=== PATIENT | male | born 1985 | race African-American/Black ===

== ENCOUNTER 2018-04-07 12:07 | Emergency (ER) | payer OTHER ==
[~2018-04-07] VITALS: Ht 180.3 cm; Wt 86.2 kg
[~2018-04-07 12:07] MED LIST: CLARITIN10 M1 ORAL; GENTAK3.5 GM OP; IBUPROFEN600 MG PO; LOMOTIL TABLET1 EACH ORAL; NKM; ONDANSETRON ODT4 MG ORAL; PENICILLIN V P500 MG PO; PROMETHAZINE-C118 M1 ORAL
[2018-04-07 12:30] VITALS: BP 144/76
--- NOTE | 2018-04-07 12:38 | Emergency Room Report ---
History of Present Illness General Chief Complaint: Abdominal Pain Source: Patient Present Illness HPI 32-year-old male presents to the emergency department complaining of 2 out of 10 in severity intermittent cramping lower abdominal pain with associated diarrhea 3 days. Patient reports he just returned from [place] and had acute onset of his symptoms when he landed. Patient denies fevers or chills he denies blood in the stool or black tarry stools. Patient denies nausea or vomiting. He states he is up-to-date with his vaccinations denies ill contacts with similar symptoms. Patient denies abdominal tenderness. Patient estimates that since landing 3 days ago he's had approximately 20 loose stools that he describes as primarily watery in consistency. Denies fatigue, rashes, swollen tender lymph nodes, headache or dizziness. Allergies: Coded Allergies: No Known Allergies (Unverified , 11/17/13) Patient History Past Medical History: see triage record Past Surgical History: none Pertinent Family History: none Reviewed Nursing Documentation: PMH: Agreed; PSxH: Agreed Nursing Documentation-PMH Past Medical History: No Stated History Review of Systems All Other Systems: negative except mentioned in HPI Physical Exam Vital Signs Date Time Temp Pulse Resp B/P (MAP) Pulse Ox O2 Delivery O2 Flow Rate FiO2 04/07/18 12:15 98.4 86 20 133/80 97 Room Air 98.4 Sp02 EP Interpretation: reviewed, normal General Appearance: no apparent distress, alert, GCS 15, non-toxic Head: normocephalic, atraumatic ENT: hearing grossly normal, normal voice Neck: full range of motion Respiratory: chest non-tender, lungs clear, normal breath sounds, speaking full sentences Cardiovascular #1: regular rate, rhythm, no edema Gastrointestinal: normal bowel sounds - hyperactive BS in all 4 quadrants., non tender, soft, no peritonitis, non-distended, no guarding Rectal: deferred Genitourinary: normal inspection Musculoskeletal: back normal, gait/station normal, normal range of motion, non- tender Neurologic: alert, oriented x3, responsive, motor strength/tone normal, sensory intact, speech normal, grossly normal Psychiatric: judgement/insight normal Skin: normal color, no rash, warm/dry, well hydrated Lymphatic: no adenopathy Medical Decision Making PA Attestation Dr. Holland is my supervising Physician whom patient management has been discussed with. Diagnostic Impression: Primary Impression: Diarrhea Qualified Codes: R19.7 - Diarrhea, unspecified ER Course 32-year-old male presents to the emergency department complaining of 2 out of 10 in severity intermittent cramping lower abdominal pain with associated diarrhea 3 days. Patient reports he just returned from [place] and had acute onset of his symptoms when he landed. Patient denies fevers or chills he denies blood in the stool or black tarry stools. Patient denies nausea or vomiting. He states he is up-to-date with his vaccinations denies ill contacts with similar symptoms. Patient denies abdominal tenderness. Patient estimates that since landing 3 days ago he's had approximately 20 loose stools that he describes as primarily watery in consistency. Denies fatigue, rashes, swollen tender lymph nodes, headache or dizziness. Ddx considered but are not limited to GE, colitis, acute appy, SBO, Cyclical Vomiting secondary to THC Vital signs: pt. is afebrile, H&PE are most consistent with GE most likely traveler's diarrhea, no evidence to suggest acute abdomen on physical exam. pt. non-toxic in appearance and for the most part NAD ORDERS: -None required at this time, the dx is clinical. ED INTERVENTIONS: -1000 NS IV hydration, -Bentyl PO - Mylanta PO d/w pt. conservative treatment, and to follow up with a primary care provider. pt given a list of primary care clinics for follow up. d/w pt. to return to the ED with worsening or new symptoms. DISCHARGE: At this time pt. is stable for d/c to home. Will provide printed patient care instructions, and any necessary prescriptions. Care plan and follow up instructions have been discussed with the patient prior to discharge. Last Vital Signs Date Time Temp Pulse Resp B/P (MAP) Pulse Ox O2 Delivery O2 Flow Rate FiO2 04/07/18 12:15 98.4 86 20 133/80 97 Room Air 98.4 Disposition: HOME, SELF-CARE Condition: Stable Scripts Simethicone* (SIMETHICONE*) 80 Mg Tab.chew 80 MG ORAL Q8H, #20 TAB 0 Refills Prov: Neela Alvarez 04/07/18 Dicyclomine Hcl* (DICYCLOMINE HCL*) 10 Mg Capsule 10 MG PO QID, #16 CAP Prov: Neela Alvarez 04/07/18 Departure Forms: Return to Work Work Restrictions: None Other Restrictions: please excuse for 04/05/18 as well. Return to Full Activity: Apr 11, 2018 Patient Instructions: Diarrhea, Adult, [id number], Food Choices to Help Relieve Diarrhea, Adult Additional Instructions: Take medications as directed. Follow up with a Primary Care Provider in 3-5 days, even if your symptoms have resolved. --Please review list of primary care clinics, if you do not already have a primary care provider Return sooner to ED if new symptoms occur, or current symptoms become worse. - Please note that this Emergency Department Report was dictated using [employer] coordinator technology software, occasionally this can lead to erroneous entry secondary to interpretation by the dictation equipment. Neela Alvarez Apr 07, 2018 12:38
[2018-04-07] MEDS ORDERED: Mylanta II UD 30ml ORAL ONE (12:45)
[2018-04-07] MEDS ORDERED: Dicyclomine 10mg Cap ORAL ONE (12:45)
[2018-04-07] MEDS ORDERED: SIMETHICONE80 MG ORAL (13:18)
[2018-04-07] MEDS ORDERED: DICYCLOMINE HCL10 MG PO (13:18)
[2018-04-07 14:43] VITALS: BP 131/74
== END 2018-04-07 14:43 | disposition home or self-care (01) ==
LOC: EMR 12:20
DX: R19.7 Diarrhea, unspecified (principal); R10.30 Lower abdominal pain, unspecified
CPT/HCPCS: 96360; 99284

== ENCOUNTER 2018-11-28 08:58 | Emergency (ER) | payer SELFPAY ==
[~2018-11-28] VITALS: Ht 180.3 cm; Wt 86.2 kg
[~2018-11-28 08:58] MED LIST changes: +DICYCLOMINE HCL10 MG PO; +SIMETHICONE80 MG ORAL
[2018-11-28] MEDS ORDERED: NKM (09:03)
[2018-11-28 09:14] VITALS: BP 136/85
[2018-11-28] MEDS ORDERED: Azithromycin 250mg tab ORAL ONE (09:15)
--- NOTE | 2018-11-28 09:15 | Emergency Room Report ---
History of Present Illness General Chief Complaint: Sore Throat Source: Patient Present Illness HPI Patient presents with 4 days of throat pain. He states the pain is a 7/10. Burning when he swallows. The last time this happened he got treated with antibiotics and improved. He is requesting antibiotics at this time. He did not receive a flu vaccination. No fevers, chills, chest pain, palpitations, nausea, vomiting, diarrhea, dysuria , abdominal pain, shortness of breath, depression, visual changes, headache. 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[facility] Reviewed Nursing Documentation: PMH: Agreed; PSxH: Agreed Review of Systems Cardiovascular: Denies: no symptoms, see HPI, chest pain, edema, palpitations, syncope, PND, other All Other Systems: negative except mentioned in HPI Physical Exam Vital Signs Date Time Temp Pulse Resp B/P (MAP) Pulse Ox O2 Delivery O2 Flow Rate FiO2 11/28/18 09:00 98.2 67 19 136/85 99 Room Air Sp02 EP Interpretation: reviewed, normal General Appearance: well appearing, no apparent distress Head: normocephalic, atraumatic Eyes: bilateral eye normal inspection, bilateral eye PERRL ENT: hearing grossly normal, no angioedema, normal voice, pharyngeal erythema - No exudate Neck: full range of motion, supple, thyroid normal Respiratory: lungs clear, normal breath sounds, no respiratory distress, speaking full sentences Cardiovascular #1: regular rate, rhythm Cardiovascular #2: 2+ radial (R) Gastrointestinal: normal inspection Musculoskeletal: back normal, digits/nails normal, gait/station normal Neurologic: alert, oriented x3, normal gait, grossly normal Psychiatric: mood/affect normal Skin: no rash Lymphatic: adenopathy - Anterior neck Medical Decision Making Diagnostic Impression: Primary Impression: Pharyngitis Qualified Codes: J02.9 - Acute pharyngitis, unspecified ER Course Patient presents with sore throat. Different differential includes Streptococcus, viral, mononucleosis amongst others. Exam is against influenza. Based on exam antibiotics are indicated. Tylenol and azithromycin are given. Treatment plan discussed with patient. Patient stable for outpatient observation and treatment. Last Vital Signs Date Time Temp Pulse Resp B/P (MAP) Pulse Ox O2 Delivery O2 Flow Rate FiO2 11/28/18 09:28 98.2 11/28/18 09:22 68 19 136/85 99 Room Air Status: improved Disposition: HOME, SELF-CARE Condition: Stable Scripts Azithromycin* (ZITHROMAX*) 250 Mg Tablet 250 MG ORAL DAILY, #4 TAB Prov: Eloy Holland MD 11/28/18 Eloy Holland MD Nov 28, 2018 09:15
[2018-11-28] MEDS ORDERED: ZITHROMAX250 MG ORAL (09:17)
--- NOTE | 2018-11-28 09:28 | NUR ---
ER DISCHARGE NOTE: Patient is cleared to be discharged per ERMD, pt is aox4, on room air, with stable vital signs. pt was given dc and prescription instructions, pt was able to verbalize understanding, pt is able to ambulate with steady gait. pt took all belongings.
== END 2018-11-28 09:30 | disposition home or self-care (01) ==
LOC: EMR 09:20
DX: J02.9 Acute pharyngitis, unspecified (principal)
CPT/HCPCS: 99282

== ENCOUNTER 2020-09-03 05:03 | Emergency (ER) | payer MEDICAID ==
[~2020-09-03] VITALS: Ht 180.3 cm; Wt 104.3 kg
[~2020-09-03 05:03] MED LIST changes: +ZITHROMAX250 MG ORAL
--- NOTE | 2020-09-03 05:12 | NUR ---
ED Nurse Note: Patient walked into the ED with c/o mid epigastric pain /chest pain onset 1 week ago. Pain 6/10 and pain is on and off and usually occurs after eating fatty foods. Pt stated he changed his diet recently. Patient denies SOB/, N/V/D, fever and chills. Patient denies injury/trauma. Patient is AAOx4 and ambulatory.
--- NOTE | 2020-09-03 05:20 | NUR ---
ED Nurse Note: ERMD at bedside. EKG done
[2020-09-03] MEDS ORDERED: PRILOSEC OTC20 MG ORAL (05:25)
--- NOTE | 2020-09-03 05:25 | Emergency Room Report ---
History of Present Illness General Chief Complaint: Abdominal Pain Source: Patient, Medical Record Present Illness HPI 34-year-old male with no past medical history. He presents with chief complaint of epigastric/chest pain. On and off for a week now. Usually occur after eating fatty and fried food. Pain started in the epigastric area and goes up through his chest and throat area. Burning sensation. No nausea no vomiting. No diarrhea. No fever chills. Denies any exertional component. No diaphoresis. Pain is a burning gnawing sensation. Rated as 6 out of 10. Allergies: Coded Allergies: No Known Allergies (Unverified , 11/17/13) COVID-19 Screening Contact w/high risk pt: No Experienced COVID-19 symptoms?: No COVID-19 Testing performed PRESIDENT AND CMO: No Patient History Past Medical History: see triage record, old chart reviewed Past Surgical History: none Pertinent Family History: none Social History: Denies: smoking Immunizations: other Reviewed Nursing Documentation: PMH: Agreed; PSxH: Agreed Nursing Documentation-PMH Past Medical History: No Stated History Review of Systems Eye: Denies: eye pain, blurred vision ENT: Denies: ear pain, nose congestion, throat swelling Respiratory: Denies: cough, shortness of breath Cardiovascular: Reports: chest pain; Denies: palpitations Gastrointestinal: Reports: abdominal pain; Denies: diarrhea, nausea, vomiting Musculoskeletal: Denies: back pain, joint pain Skin: Denies: rash Neurological: Denies: headache, numbness Endocrine: Denies: increased thirst, increased urine Hematologic/Lymphatic: Denies: easy bruising All Other Systems: negative except mentioned in HPI Physical Exam Vital Signs Date Time Temp Pulse Resp B/P (MAP) Pulse Ox O2 Delivery O2 Flow Rate FiO2 09/03/20 05:08 98.6 76 16 132/76 (94) 98 Room Air Vitals normal Sp02 EP Interpretation: reviewed, normal General Appearance: well appearing, no apparent distress, alert Head: normocephalic, atraumatic Eyes: bilateral eye PERRL, bilateral eye EOMI ENT: hearing grossly normal, normal pharynx Neck: full range of motion, supple, no meningismus Respiratory: chest non-tender, lungs clear, normal breath sounds Cardiovascular #1: regular rate, rhythm, no murmur Gastrointestinal: normal bowel sounds, non tender, no mass, no organomegaly, no bruit, non-distended Musculoskeletal: back normal, normal range of motion, gait/station normal Psychiatric: mood/affect normal Medical Decision Making Diagnostic Impression: Primary Impression: PUD (peptic ulcer disease) ER Course Patient with epigastric pain. EKG is normal. I see no evidence of ACS, PE, dissection. His symptoms consistent with peptic ulcer disease/gastritis. Will discharge home. EKG Diagnostic Results Troponin ordered: No Rate: normal Rhythm: NSR ST Segments: no acute changes Last Vital Signs Date Time Temp Pulse Resp B/P (MAP) Pulse Ox O2 Delivery O2 Flow Rate FiO2 09/03/20 05:08 98.6 76 16 132/76 (94) 98 Room Air Status: improved Disposition: HOME, SELF-CARE Condition: Stable Scripts Omeprazole Magnesium (PRILOSEC OTC) 20 Mg Tablet. 20 MG ORAL DAILY, #30 TAB Prov: Nick Mann MD 09/03/20 Additional Instructions: Follow with your doctor in 7 days. Return if symptoms worsen. Nick Mann MD Sep 03, 2020 05:25
[2020-09-03 05:30] VITALS: BP 132/76
[2020-09-03] MEDS ORDERED: Lidocaine 2% Visc 15ml soln ORAL ONE (05:30)
[2020-09-03] MEDS ORDERED: Mylanta II UD 30ml ORAL ONE (05:30)
--- NOTE | 2020-09-03 05:30 | NUR ---
ER DISCHARGE NOTE: Patient is cleared to be discharged per ERMD, pt is aox4, on room air, with stable vital signs. pt was given dc and prescription instructions, pt was able to verbalize understanding, pt id band removed. pt is able to ambulate with steady gait. pt took all belongings.
[2020-09-03 05:49] VITALS: BP 132/76
== END 2020-09-03 05:30 | disposition home or self-care (01) ==
LOC: EMR 05:29
DX: K27.9 Peptic ulcer, site unspecified, unspecified as acute or chronic, without hemorrhage or perforation (principal)
CPT/HCPCS: 93005; Z7502; 99282